=== PATIENT | female | born 1985 | race Caucasian/White ===

== ENCOUNTER 2018-11-08 15:28 | Emergency (ER) | payer OTHER, MEDICAID, SELFPAY ==
[2018-11-08 15:30] VITALS: BP 106/67; PULSE 80; RESP 14; TEMP 37.1; O2SAT 97; BMI 20.2
--- NOTE | 2018-11-08 16:07 | ED.DCSUM_ITS ---
- ER Visit Summary Date of Service: 11/08/18 Chief Complaint: Head injury History of Present Illness: The patient is a 33 F who tripped and fell forward, hitting her head against the wall. She then fell to the ground. She complains of abrasion to her left lateral eye and her occipital region. No loss of consciousness. She does not take blood thinners. Denies nausea or vomiting. Denies any other pain or injuries. Denies any neurologic symptoms. Physical Examination: Afebrile and vital signs unremarkable. She has a tiny abrasion lateral to her left eye. Eye exam is unremarkable. HEENT exam atraumatic. No drainage. Neck is nontender with good range of motion. Extremities nontender with good range of motion. Good strength and sensation. Cranial nerves grossly intact. Normal neurologic exam. Test Results: None indicated Emergency Department Course and Treatment: Patient does not need imaging of her head or neck per [employer], [place], [employer] policy, and [place] criteria. Concussion precautions were discussed. Follow-up with primary care or return if worse. Treatment Plan: As above Disposition: Discharge Impression: Concussion without loss of consciousness This note was generated with [employer] dictation software. It may contain incorrect words, spelling, and punctuation that were not noted in review of the chart prior to signing
--- NOTE | 2018-11-08 16:10 | ED.DEP ---
ED Disposition - Plan for ED Patient: Instructions: CONCUSSION, No Wake Up Referrals: Shira May MD [STAFF PHYSICIAN] -
== END 2018-11-08 16:28 | disposition home or self-care (01) ==
LOC: ED 16:22
PROVIDERS: Emergency Provider Emergency Medicine; Family Provider Internal Medicine; PCP Internal Medicine
DX: S06.0X0A Concussion without loss of consciousness, initial encounter (principal); F32.9 Major depressive disorder, single episode, unspecified; Z79.899 Other long term (current) drug therapy; W01.198A Fall on same level from slipping, tripping and stumbling with subsequent striking against other object, initial encounter; Y93.89 Activity, other specified; Y92.89 Other specified places as the place of occurrence of the external cause; Y99.8 Other external cause status
CPT/HCPCS: 99282

== ENCOUNTER → 2019-10-13 12:24 | Outpatient (CLI) | payer MEDICAID, SELFPAY ==
[2019-10-13 10:52] VITALS: BMI 20.2
== END ==
PROVIDERS: PCP Internal Medicine; Visit Provider Physician Assistant Surgical
DX: Z02.1 Encounter for pre-employment examination (principal)
CPT/HCPCS: 87635; U0003